=== PATIENT | male | born 1930 | race Caucasian/White ===

== ENCOUNTER → 2017-01-05 | Outpatient (CLI) | payer MEDICARE, BC ==
[~2017-01-05] MED LIST: ADVAIR DIS14 PUFF/IN INH; COREG12.5 MG PO; DEMADEX20 MG PO; FERROUS SULFAT325 M1 PO; FOLIC ACID1 MG PO; GLUCOPHAGE1000 MG PO; IPRAT-ALBUT 0.5-3 ML INH; JANUVIA100 MG PO; KLOR-CON M2020 MEQ PO; LIPITOR80 MG PO; PLAVIX75 MG PO; PROSCAR5 MG PO; VITAMIN B-121000 MCG PO
== END | disposition short-term general hospital (02) ==
LOC: CLONCO 10:38
DX: D69.6 Thrombocytopenia, unspecified (principal)